=== PATIENT | female | born 1980 | race Two or more races ===

== ENCOUNTER 2017-10-02 15:15 | Inpatient (IN) | payer OTHER ==
[~2017-10-02] VITALS: Ht 160 cm; Wt 4.1 kg
[~2017-10-02 15:15] MED LIST: ATABEX DHA 200200 MG; B-COMPLEX WIT400 MC1; DHA100 MG
== END 2017-11-02 16:12 | DRG 766 ==
LOC: LDR 10-07 15:15 → OB/GYN 10-30 06:13
PROVIDERS: Obstetrics & Gynecology
PROC: 0UL70ZZ Occlusion of Bilateral Fallopian Tubes, Open Approach (ICD-10-PCS; 2017-10-30)
PROC: 4A033R1 Measurement of Arterial Saturation, Peripheral, Percutaneous Approach (ICD-10-PCS; 2017-10-30)
PROC: 4A1HXCZ Monitoring of Products of Conception, Cardiac Rate, External Approach (ICD-10-PCS; 2017-10-30)
PROC: 10D00Z1 Extraction of Products of Conception, Low, Open Approach (ICD-10-PCS; principal; 2017-10-30 17:00)
DX: O62.0 Primary inadequate contractions (principal); O99.824 Streptococcus B carrier state complicating childbirth; Z3A.39 39 weeks gestation of pregnancy; Z37.0 Single live birth; Z30.2 Encounter for sterilization; O09.523 Supervision of elderly multigravida, third trimester; O14.14 Severe pre-eclampsia complicating childbirth

== ENCOUNTER 2019-05-13 22:55 | Emergency (ER) | payer OTHER ==
[~2019-05-13] VITALS: Ht 165.1 cm; Wt 78.0 kg
[2019-05-14] MEDS ORDERED: KETO10TA2 PO (07:46)
[2019-05-14] MEDS ORDERED: CIPRO500 MG PO (07:46)
== END 2019-05-14 07:59 | disposition home or self-care (01) ==
LOC: ER 22:55
DX: N20.0 Calculus of kidney (principal); R10.31 Right lower quadrant pain